=== PATIENT | male | born 1980 | race Caucasian/White ===

== ENCOUNTER 2018-09-18 08:17 | Emergency (ER) | payer OTHER ==
[~2018-09-18] VITALS: Ht 177.8 cm; Wt 93.0 kg
[2018-09-18 08:23] VITALS: BP 157/104
[2018-09-18] MEDS ORDERED: MEDROLDOSEPACK PO (08:56)
[2018-09-18] MEDS ORDERED: EPIPEN 2-P0.3 MG/0.3 IM (08:58)
== END 2018-09-18 09:05 | disposition home or self-care (01) ==
LOC: ER 08:17
DX: L50.9 Urticaria, unspecified (principal)